=== PATIENT | female | born 1960 | race Two or more races ===

== ENCOUNTER → 2018-07-19 | Outpatient (CLI) | payer OTHER | END | disposition home or self-care (01) | LOC: TOM 07-18 07:45 | DX: D25.2 Subserosal leiomyoma of uterus (principal); N83.291 Other ovarian cyst, right side; Z12.31 Encounter for screening mammogram for malignant neoplasm of breast; N60.11 Diffuse cystic mastopathy of right breast; N60.12 Diffuse cystic mastopathy of left breast ==